=== PATIENT | female | born 1985 | race Caucasian/White ===

== ENCOUNTER 2020-12-21 11:59 | Outpatient (CLI) | payer BC ==
[2020-12-21 23:49] LABS: SARS-CoV-2 PCR by NAA Not Detected (NotDetected)
== END 2020-12-21 12:00 | disposition home or self-care (01) ==
LOC: CSHLAB 11:59
PROVIDERS: ATTEND Student in an Organized Health Care Education/Training Program
DX: Z01.812 Encounter for preprocedural laboratory examination (principal); Z20.822 Contact with and (suspected) exposure to COVID-19
CPT/HCPCS: U0003; U0005

== ENCOUNTER 2020-12-26 05:27 | Inpatient (IN) | payer BC ==
[2020-12-26] MEDS ORDERED: Bicitra 30 ML UDCUP PO PRN (05:46)
[2020-12-26] MEDS ORDERED: Ondansetron PF 4 MG/2 ML Vial IVP PRN ×3 (05:46→16:42)
[2020-12-26] MEDS ORDERED: hydrALAZINE 20 MG/ML VIAL SLOW IVP PRN ×2 (05:46→14:47)
[2020-12-26] MEDS ORDERED: Famotidine/PF 20 mg/2ml Vial SLOW IVP PRN (05:46)
[2020-12-26] MEDS ORDERED: Promethazine HCl 25 MG/ML VIAL IM PRN ×3 (05:46→16:42)
[2020-12-26] MEDS ORDERED: CEFAZOLIN 2 GM in Premix Bag 1 BAG IVPB SCH (06:00)
[2020-12-26] MEDS ORDERED: Oxytocin 10 UNITS/ML VIAL ONE (06:27)
[2020-12-26] MEDS ORDERED: Morphine PF 10 MG/10 ML VIAL ONE (06:27)
[2020-12-26] MEDS ORDERED: Phenylephrine 40 MG/NS 250 ML 250 ML ONE (06:28)
[2020-12-26] MEDS: Lactated Ringer's 1,000 ML IV SCH ×2 (06:30→15:08)
[2020-12-26 06:40] LABS: Hemoglobin 11.8 g/dL (12.0-15.5); Mean Corpuscular HGB CONC 33.2 g/dL (32.0-36.0); Mean Corpuscular Hemoglobin 28.8 pg (27.0-33.0); Mean Corpuscular Volume 86.6 fl (81.6-98.3); Platelet Count 218 10x3/uL (150-450); RBC Distribution Width 12.4 % (11.5-14.5); White Blood Cell (WBC) Count 9.6 10x3/uL (3.5-10.5)
[2020-12-26] MEDS ORDERED: PHENYLEPHRINE-NS 100 MCG/ML 10 ML SYRINGE ONE (06:43)
[2020-12-26] MEDS ORDERED: Ondansetron PF 4 MG/2 ML Vial ONE (06:45)
[2020-12-26 07:13] LABS: Hep B Surf Ag Non-Reactive S/CO (NonReactive)
[2020-12-26 07:14] LABS: HBSAg Index 0.19 S/CO (0-0.99); Syphilis Antibody Nonreactive (Nonreactive); Syphilis Antibody Index 0.02 S/CO (<1.00 Non-Reactive)
[2020-12-26 08:57] LABS: ALT (SGPT) 16 U/L (8-55); AST (SGOT) 20 U/L (5-34); Albumin 3.2 g/dL (3.5-5.0); Alkaline Phosphatase 105 U/L (40-110); Anion Gap 15 mmol/L (10-20); BUN (Urea Nitrogen) 11 mg/dL (7.0-18.7); Bilirubin, Total 0.8 mg/dL (0.2-1.2); Calc. Creatinine Clearance 0 mL/min (70-130); Calcium 8.5 mg/dL (7.8-10.44); Carbon Dioxide 16 mmol/L (22-29); Chloride 110 mmol/L (98-107); Globulin 2.5 g/dL (2.4-3.5); Glucose 65 mg/dL (70-105); Potassium 3.8 mmol/L (3.5-5.1); Protein, Total 5.7 g/dL (6.0-8.3); Sodium 137 mmol/L (136-145)
[2020-12-26] MEDS ORDERED: Ketorolac Tromethamine 30 MG/ML VIAL ONE (09:40)
[2020-12-26 09:44] VITALS: BMI 31.5
[2020-12-26] MEDS ORDERED: NS w/ Oxytocin 30 units 500 ML ONE (10:46)
[2020-12-26] MEDS ORDERED: Zolpidem Tartrate 5 MG TAB PO PRN (14:47)
[2020-12-26] MEDS ORDERED: Acetaminophen 325 MG TAB PO PRN (14:47)
[2020-12-26] MEDS ORDERED: Lanolin Ointment 7 GM TUBE TOP PRN (14:47)
[2020-12-26] MEDS ORDERED: HYDROcodone/Acetaminophen 5/325 mg Tablet PO PRN (14:47)
[2020-12-26] MEDS ORDERED: Bisacodyl 10 MG SUPP PR PRN (14:47)
[2020-12-26] MEDS ORDERED: Boostrix 0.5 ML (Tdap) VIAL IM ONE (14:47)
[2020-12-26] MEDS ORDERED: diphenhydrAMINE 25 MG CAP PO PRN (14:47)
[2020-12-26] MEDS ORDERED: Prenatal Vitamin 1 TAB PO SCH (15:00)
[2020-12-26] MEDS ORDERED: Docusate Calcium (SURFAK) 240 MG CAP PO SCH (15:00)
[2020-12-26] MEDS ORDERED: Ferrous Sulfate 325 MG TAB PO SCH (15:00)
[2020-12-26] MEDS ORDERED: Promethazine HCl 25 MG SUPP PR PRN (16:42)
[2020-12-26] MEDS ORDERED: Naloxone HCl 0.4 mg/ml Vial IV PRN (16:42)
[2020-12-26] MEDS ORDERED: diphenhydrAMINE 50 MG/ML VIAL IVP PRN (16:42)
[2020-12-26] MEDS ORDERED: Hydrocerin (Eucerin) Cream 120 gm Jar TOP PRN (16:42)
[2020-12-26] MEDS ORDERED: Naloxone HCl 0.4 mg/ml Vial IVP PRN ×2 (16:42)
[2020-12-26] MEDS ORDERED: Ketorolac Tromethamine 30 MG/ML VIAL IVP PRN (16:42)
[2020-12-26] MEDS ORDERED: Communication Order-Pharmacy FS SCH (16:45)
[2020-12-27] MEDS: HYDROcodone/Acetaminophen 5/325 mg Tablet PO PRN ×3 (03:13→19:06)
[2020-12-27] MEDS: Docusate Calcium (SURFAK) 240 MG CAP PO SCH ×3 (04:06→21:08)
[2020-12-27] MEDS: Ferrous Sulfate 325 MG TAB PO SCH ×3 (04:07→21:07)
[2020-12-27 04:53] LABS: Hemoglobin 10.3 g/dL (12.0-15.5); Mean Corpuscular HGB CONC 32.4 g/dL (32.0-36.0); Mean Corpuscular Hemoglobin 28.7 pg (27.0-33.0); Mean Corpuscular Volume 88.6 fl (81.6-98.3); Platelet Count 184 10x3/uL (150-450); RBC Distribution Width 12.5 % (11.5-14.5); Red Blood Cell (RBC) Count 3.59 10x6/uL (3.90-5.03); White Blood Cell (WBC) Count 9.1 10x3/uL (3.5-10.5)
[2020-12-27] MEDS: Ibuprofen 800 MG TAB PO SCH ×3 (06:26→21:08)
[2020-12-27] MEDS: Prenatal Vitamin 1 TAB PO SCH (09:14)
[2020-12-27] MEDS: Simethicone Chewable 80 MG TAB PO PRN (09:14)
[2020-12-27] MEDS ORDERED: Ibuprofen 800 MG TAB PO SCH (22:00)
[2020-12-28] MEDS: Ibuprofen 800 MG TAB PO SCH ×3 (05:08→21:37)
[2020-12-28] MEDS: Ferrous Sulfate 325 MG TAB PO SCH ×2 (08:10→21:35)
[2020-12-28] MEDS: Simethicone Chewable 80 MG TAB PO PRN (09:19)
[2020-12-28] MEDS: Docusate Calcium (SURFAK) 240 MG CAP PO SCH ×2 (09:19→21:37)
[2020-12-28] MEDS: Prenatal Vitamin 1 TAB PO SCH (09:19)
[2020-12-28] MEDS: HYDROcodone/Acetaminophen 5/325 mg Tablet PO PRN (18:09)
[2020-12-29] MEDS: HYDROcodone/Acetaminophen 5/325 mg Tablet PO PRN (04:29)
[2020-12-29] MEDS: Ibuprofen 800 MG TAB PO SCH (04:29)
[2020-12-29 07:52] VITALS: BP 159/77; TEMP 97.9
[2020-12-29] MEDS: Ferrous Sulfate 325 MG TAB PO SCH (09:59)
[2020-12-29] MEDS: Prenatal Vitamin 1 TAB PO SCH (10:00)
[2020-12-29] MEDS: Docusate Calcium (SURFAK) 240 MG CAP PO SCH (10:00)
== END 2020-12-29 10:35 | disposition home or self-care (01) | DRG 788 ==
LOC: CSHLD 05:27 → CSHPP 11:12
PROVIDERS: ADMIT Student in an Organized Health Care Education/Training Program; ATTEND Student in an Organized Health Care Education/Training Program
PROC: 10D00Z1 Extraction of Products of Conception, Low, Open Approach (ICD-10-PCS; principal; 2020-12-26)
DX: O32.1XX0 Maternal care for breech presentation, not applicable or unspecified (principal); O24.425 Gestational diabetes mellitus in childbirth, controlled by oral hypoglycemic drugs; O43.123 Velamentous insertion of umbilical cord, third trimester; O20.8 Other hemorrhage in early pregnancy; O13.4 Gestational [pregnancy-induced] hypertension without significant proteinuria, complicating childbirth; Z3A.37 37 weeks gestation of pregnancy; Z37.0 Single live birth
CPT/HCPCS: 36415; 51702; 80053; 85027; 86780; 86850; 86900; 86901; 87340; J1885; J2274; J2405; J2590; J7120